=== PATIENT | female | born 1950 | race Asian ===

== ENCOUNTER 2016-04-14 23:13 | Inpatient (IN) | payer OTHER ==
[~2016-04-14] VITALS: Ht 149.9 cm; Wt 48.7 kg
[~2016-04-14 23:13] MED LIST: LOSA50TA37 PO; SIMV-260 PO
[2016-04-14] MEDS ORDERED: ONDANSETRON HCL 4 MG/2 ML VIAL IVP ONE (23:30)
[2016-04-14] MEDS ORDERED: SODIUM CHLORIDE 0.9% 1,000 ML IV ONE (23:30)
[2016-04-14 23:42] LABS: GLUCOSE,POINT OF CARE 148 MG/DL (70-110)
[2016-04-14 23:43] LABS: BASOPHILS % (AUTO) 0.5 % (0.0-2.0); EOSINOPHILS % (AUTO) 5.3 % (1.0-6.0); HEMATOCRIT 40.6 % (36-46); HEMOGLOBIN 13.4 g/dL (12.0-16.0); LYMPHOCYTES % (AUTO) 42.6 % (22.0-44.0); MEAN CORPUSCULAR HEMOGLOBIN 29.2 pg (26.0-34.0); MEAN CORPUSCULAR HGB CONC 32.9 G/dL (31.0-37.0); MEAN CORPUSCULAR VOLUME 89 fL (80-100); MONOCYTES # (AUTO) 0.7 K/uL (0.1-1.0); MONOCYTES % (AUTO) 7.8 % (2.0-9.0); NEUTROPHILS # (AUTO) 4.1 K/uL (1.8-7.7); NEUTROPHILS % (AUTO) 43.8 % (40.0-70.0); PLATELET COUNT (AUTO) 201 K/uL (150-450); RED BLOOD CELL COUNT(AUTO) 4.58 MIL/uL (4.00-5.20); RED CELL DISTRIBUTION WIDTH 12.2 % (11.5-14.5); WHITE BLOOD COUNT (AUTO) 9.4 K/uL (4.5-11.0)
[2016-04-15 00:15] LABS: APPEARANCE,URINE CLEAR (CLEAR); GLUCOSE, URINE (UA) NEGATIVE (NEGATIVE); KETONES,URINE NEGATIVE (NEGATIVE); LEUKOCYTE ESTERASE ,URINE NEGATIVE (NEGATIVE); OCCULT BLOOD,URINE NEGATIVE (NEGATIVE); PROTEIN,URINE NEGATIVE (NEGATIVE)
[2016-04-15 00:25] LABS: ALANINE AMINOTRANSFERASE 24 U/L (12-78); ALBUMIN 3.8 g/dL (3.4-5.0); ANION GAP 12 mmol/L (8-16); ASPARTATE AMINOTRANSFERASE 29 U/L (15-37); BILIRUBIN,TOTAL 0.6 mg/dL (0.1-1.0); CALCIUM, TOTAL 8.7 mg/dL (8.8-10.5); CARBON DIOXIDE 28 mmol/L (22-29); CHLORIDE 100 mmol/L (98-107); CREATININE 1.16 mg/dL (0.60-1.30); GLOMERULAR FILTR. RATE CALC 47 mL/min (>60); SODIUM SERUM 140 mmol/L (136-145); THYROID STIMULATING HORMONE 2.55 uIU/mL (0.36-3.74); TOTAL PROTEIN, SERUM 7.8 g/dL (6.4-8.2); UREA NITROGEN, BLOOD 14 mg/dL (7-18)
[2016-04-15 00:30] LABS: POTASSIUM 2.4 mmol/L (3.5-5.1)
[2016-04-15 00:42] LABS: RBC,URINE 0-2 /HPF (0-2); WBC,URINE None Seen /HPF (0-5)
[2016-04-15] MEDS ORDERED: POTASSIUM CHLORIDE 10% 40 MEQ/30 ML LIQUID UDCUP PO ONE (00:45)
[2016-04-15] MEDS ORDERED: POTASSIUM CHL 20 MEQ/D5-0.45NS 1,000 ML IV ONE (00:45)
[2016-04-15] MEDS ORDERED: IOVERSOL 350 MG/ML 100 ML VIAL ONE (00:54)
[2016-04-15] MEDS ORDERED: SODIUM CHLORIDE 0.9% 100 ML ONE (00:54)
[2016-04-15] MEDS ORDERED: PROMETHAZINE HCL 12.5 MG in SODIUM CHLORIDE 0.9% 50 ML IV ONE (01:00)
[2016-04-15] MEDS ORDERED: POTASSIUM CHL 10 MEQ/WATER 50 ML IV PRN (07:45)
[2016-04-15] MEDS ORDERED: SODIUM CHLORIDE 0.9% 1,000 ML IV ONE (07:45)
[2016-04-15] MEDS ORDERED: SODIUM CHLORIDE 0.9% 250 ML IV ONE (07:45)
[2016-04-15 08:43] LABS: CALCIUM, TOTAL 8.4 mg/dL (8.8-10.5); CREATININE 0.97 mg/dL (0.60-1.30); POTASSIUM 3.4 mmol/L (3.5-5.1)
[2016-04-15 09:08] VITALS: BP 122/59
[2016-04-15] MEDS ORDERED: ONDANSETRON HCL 4 MG/2 ML VIAL IVP PRN (10:30)
[2016-04-15] MEDS ORDERED: ACETAMINOPHEN 325 MG TABLET PO PRN (10:30)
[2016-04-15] MEDS ORDERED: HYDROCODONE/ACETAMINOPHEN 5-325 MG TABLET PO PRN (10:30)
[2016-04-15] MEDS ORDERED: MORPHINE SULFATE 2 MG/ML SYRINGE IVP PRN (10:30)
[2016-04-15] MEDS ORDERED: MAGNESIUM HYDROXIDE SUSPENSION 30 ML UDCUP PO PRN (10:30)
[2016-04-15] MEDS ORDERED: ZOLPIDEM TARTRATE 5 MG TABLET PO PRN (10:30)
[2016-04-15] MEDS ORDERED: BISACODYL 10 MG RECTAL RECTAL SUPPOSITORY PR PRN (10:30)
[2016-04-15] MEDS ORDERED: PHENAZOPYRIDINE HCL 100 MG TABLET PO PRN (10:45)
[2016-04-15] MEDS: BISACODYL 5 MG EC TABLET PO SCH ×2 (11:31→19:47)
[2016-04-15] MEDS: POTASSIUM CHLORIDE 20 MEQ ER TABLET PO PRN (11:32)
[2016-04-15] MEDS: NITROFURANTOIN/NITROFURAN MAC 100 MG CAPSULE [MACROBID] PO SCH (11:32)
[2016-04-15] MEDS: SODIUM CHLORIDE 0.9% 1,000 ML IV SCH ×2 (11:43→19:46)
[2016-04-15 12:38] VITALS: BP 112/66
[2016-04-15 16:03] VITALS: BP 110/63
[2016-04-15] MEDS: HEPARIN SODIUM,PORCINE 5,000 UNITS/ML VIAL SQ SCH ×2 (17:14→23:35)
[2016-04-15 19:45] VITALS: BP 109/63
[2016-04-15] MEDS: SIMVASTATIN 20 MG TABLET PO SCH (19:46)
[2016-04-15] MEDS: DOCUSATE SODIUM 100 MG CAPSULE PO SCH (19:46)
[2016-04-16 00:04] VITALS: BP 105/65
[2016-04-16 04:39] VITALS: BP 107/67
[2016-04-16 07:16] LABS: BASOPHILS % (AUTO) 0.3 % (0.0-2.0); EOSINOPHILS % (AUTO) 3.3 % (1.0-6.0); HEMATOCRIT 34.3 % (36-46); HEMOGLOBIN 11.3 g/dL (12.0-16.0); LYMPHOCYTES # (AUTO) 2.1 K/uL (1.0-4.8); LYMPHOCYTES % (AUTO) 23.1 % (22.0-44.0); MEAN CORPUSCULAR HEMOGLOBIN 29.2 pg (26.0-34.0); MEAN CORPUSCULAR HGB CONC 33.1 G/dL (31.0-37.0); MEAN CORPUSCULAR VOLUME 88 fL (80-100); MONOCYTES # (AUTO) 0.5 K/uL (0.1-1.0); NEUTROPHILS # (AUTO) 6.4 K/uL (1.8-7.7); NEUTROPHILS % (AUTO) 68.3 % (40.0-70.0); PLATELET COUNT (AUTO) 185 K/uL (150-450); RED BLOOD CELL COUNT(AUTO) 3.87 MIL/uL (4.00-5.20); RED CELL DISTRIBUTION WIDTH 12.8 % (11.5-14.5); WHITE BLOOD COUNT (AUTO) 9.3 K/uL (4.5-11.0)
[2016-04-16 07:41] LABS: CALCIUM, TOTAL 8.3 mg/dL (8.8-10.5); CREATININE 1.08 mg/dL (0.60-1.30); POTASSIUM 3.3 mmol/L (3.5-5.1)
[2016-04-16 08:12] VITALS: BP 120/65
[2016-04-16] MEDS: BISACODYL 5 MG EC TABLET PO SCH ×3 (08:30→21:00)
[2016-04-16] MEDS: ASPIRIN 81 MG EC TABLET PO SCH (08:30)
[2016-04-16] MEDS: HEPARIN SODIUM,PORCINE 5,000 UNITS/ML VIAL SQ SCH ×3 (08:30→23:24)
[2016-04-16] MEDS: DOCUSATE SODIUM 100 MG CAPSULE PO SCH ×2 (08:30→20:13)
[2016-04-16] MEDS: PANTOPRAZOLE SODIUM 40 MG DR TABLET PO SCH (08:31)
[2016-04-16] MEDS: NITROFURANTOIN/NITROFURAN MAC 100 MG CAPSULE [MACROBID] PO SCH (08:42)
[2016-04-16 12:00] VITALS: BP 151/84
[2016-04-16] MEDS ORDERED: GuaiFENesin/D-METHORPHAN/PHENYLEPH 5 ML LIQUID ORAL.SYG PO PRN (12:00)
[2016-04-16] MEDS: SODIUM CHLORIDE 0.9% 1,000 ML IV SCH (12:16)
[2016-04-16] MEDS: POTASSIUM CHLORIDE 20 MEQ ER TABLET PO PRN (12:16)
[2016-04-16 19:30] VITALS: BP 135/86
[2016-04-16] MEDS: SIMVASTATIN 20 MG TABLET PO SCH (21:00)
[2016-04-16 23:22] VITALS: BP 139/80
[2016-04-17 05:48] VITALS: BP 142/86
[2016-04-17 06:45] LABS: BASOPHILS # (AUTO) 0.05 K/uL (0.00-0.20); BASOPHILS % (AUTO) 0.7 % (0.0-2.0); EOSINOPHILS # (AUTO) 0.46 K/uL (0.00-0.70); EOSINOPHILS % (AUTO) 6.28 % (1.0-6.0); HEMATOCRIT 36.7 % (36-46); HEMOGLOBIN 12.6 g/dL (12.0-16.0); LYMPHOCYTES # (AUTO) 2.6 K/uL (1.0-4.8); LYMPHOCYTES % (AUTO) 34.9 % (22.0-44.0); MEAN CORPUSCULAR HEMOGLOBIN 29.9 pg (26.0-34.0); MEAN CORPUSCULAR HGB CONC 34.4 G/dL (31.0-37.0); MEAN CORPUSCULAR VOLUME 87 fL (80-100); MONOCYTES # (AUTO) 0.6 K/uL (0.1-1.0); MONOCYTES % (AUTO) 7.8 % (2.0-9.0); NEUTROPHILS # (AUTO) 3.7 K/uL (1.8-7.7); NEUTROPHILS % (AUTO) 50.4 % (40.0-70.0); PLATELET COUNT (AUTO) 206 K/uL (150-450); RED BLOOD CELL COUNT(AUTO) 4.21 MIL/uL (4.00-5.20); RED CELL DISTRIBUTION WIDTH 12.5 % (11.5-14.5); WHITE BLOOD COUNT (AUTO) 7.3 K/uL (4.5-11.0)
[2016-04-17] MEDS: DOCUSATE SODIUM 100 MG CAPSULE PO SCH (07:13)
[2016-04-17 07:17] VITALS: BP 123/76
[2016-04-17] MEDS: NITROFURANTOIN/NITROFURAN MAC 100 MG CAPSULE [MACROBID] PO SCH (07:49)
[2016-04-17] MEDS: PANTOPRAZOLE SODIUM 40 MG DR TABLET PO SCH (07:49)
[2016-04-17] MEDS: HEPARIN SODIUM,PORCINE 5,000 UNITS/ML VIAL SQ SCH (07:49)
[2016-04-17] MEDS: BISACODYL 5 MG EC TABLET PO SCH (07:49)
[2016-04-17] MEDS: ASPIRIN 81 MG EC TABLET PO SCH (07:49)
[2016-04-17 11:27] VITALS: BP 148/90
[2016-04-17] MEDS ORDERED: ZOLP5 PO (11:34)
[2016-04-17 15:29] VITALS: BP 132/85
== END 2016-04-17 18:50 | disposition home or self-care (01) | DRG 425 ==
LOC: EMS 23:16 → 6N 04-15 04:40
PROVIDERS: ADMIT Internal Medicine; ATTEND Internal Medicine
DX: E87.6 Hypokalemia (principal); N39.0 Urinary tract infection, site not specified; I10 Essential (primary) hypertension; K59.00 Constipation, unspecified; E78.5 Hyperlipidemia, unspecified; Z79.899 Other long term (current) drug therapy; Z98.890 Other specified postprocedural states; Z90.710 Acquired absence of both cervix and uterus; Z87.440 Personal history of urinary (tract) infections
CPT/HCPCS: 72100; 73503; 74010; 74177; 82962; 84132; 84443; 93005; 96360; 96361; 96365; 96375; 99285; G0480; J1644; J2405; J2550; J3480; J7030; J7050

== ENCOUNTER 2018-03-04 09:59 | Inpatient (IN) | payer OTHER ==
[~2018-03-04] VITALS: Ht 165.1 cm; Wt 54.5 kg
[~2018-03-04 09:59] MED LIST changes: -LOSA50TA37 PO; +LOSA50TA64 PO; +ZOLP5 PO
[2018-03-04] MEDS ORDERED: ASPI-556 PO (10:23)
[2018-03-04] MEDS ORDERED: FLUT16H NASAL (10:23)
[2018-03-04] MEDS ORDERED: HYDR25TA PO (10:23)
[2018-03-04] MEDS ORDERED: METO50 PO (10:23)
[2018-03-04] MEDS ORDERED: MONT10TA21 PO (10:23)
[2018-03-04] MEDS ORDERED: ACET-784 PO (10:23)
[2018-03-04] MEDS ORDERED: ATOR20TA86 PO (10:23)
[2018-03-04 10:49] LABS: GLUCOSE,POINT OF CARE 115 MG/DL (70-110)
[2018-03-04] MEDS ORDERED: SODIUM CHLORIDE 0.9% 1,000 ML IV ONE (11:15)
[2018-03-04] MEDS ORDERED: ONDANSETRON HCL 4 MG/2 ML VIAL IVP ONE (11:15)
[2018-03-04] MEDS ORDERED: MORPHINE SULFATE 4 MG/ML SYRINGE IVP ONE (11:15)
[2018-03-04 12:18] LABS: HEMATOCRIT 41.9 % (36-46); HEMOGLOBIN 14.7 g/dL (12.0-16.0); LYMPHOCYTES # (AUTO) 2.3 K/uL (1.0-4.8); LYMPHOCYTES % (AUTO) 42.8 % (22.0-44.0); MEAN CORPUSCULAR HEMOGLOBIN 30.3 pg (26.0-34.0); MEAN CORPUSCULAR HGB CONC 35.1 G/dL (31.0-37.0); MEAN CORPUSCULAR VOLUME 86 fL (80-100); MONOCYTES # (AUTO) 0.5 K/uL (0.1-1.0); MONOCYTES % (AUTO) 9.1 % (2.0-9.0); NEUTROPHILS # (AUTO) 2.1 K/uL (1.8-7.7); NEUTROPHILS % (AUTO) 39.1 % (40.0-70.0); PLATELET COUNT (AUTO) 203 K/uL (150-450); RED BLOOD CELL COUNT(AUTO) 4.86 MIL/uL (4.00-5.20); RED CELL DISTRIBUTION WIDTH 13.2 % (11.5-14.5)
[2018-03-04] MEDS ORDERED: ONDANSETRON HCL 4 MG/2 ML VIAL IVP PRN (12:45)
[2018-03-04] MEDS ORDERED: MAGNESIUM HYDROXIDE SUSPENSION 30 ML UDCUP PO PRN (12:45)
[2018-03-04 12:48] LABS: B-TYPE NATRIURETIC PEPTIDE 41 pg/mL (0-100)
[2018-03-04 12:49] LABS: ANION GAP 6 mmol/L (8-16); CALCIUM, TOTAL 9.3 mg/dL (8.8-10.5); CARBON DIOXIDE 30 mmol/L (22-29); CHLORIDE 87 mmol/L (98-107); CREATININE 0.85 mg/dL (0.60-1.30); GLOMERULAR FILTR. RATE CALC > 60 mL/min (>60); GLUCOSE,RANDOM 85 mg/dL (70-110); POTASSIUM 3.4 mmol/L (3.5-5.1); SODIUM SERUM 123 mmol/L (136-145); UREA NITROGEN, BLOOD 10 mg/dL (7-18)
[2018-03-04 12:50] LABS: ALANINE AMINOTRANSFERASE 30 U/L (12-78); ALBUMIN 3.9 g/dL (3.4-5.0); ALKALINE PHOSPHATASE 62 U/L (46-116); ASPARTATE AMINOTRANSFERASE 30 U/L (15-37); BILIRUBIN,TOTAL 1.2 mg/dL (0.1-1.0); CREATINE KINASE, TOTAL ONLY 188 U/L (26-192); TOTAL PROTEIN, SERUM 7.6 g/dL (6.4-8.2)
[2018-03-04] MEDS ORDERED: POTASSIUM CHL 10 MEQ/WATER 50 ML IV PRN (13:15)
[2018-03-04] MEDS ORDERED: POTASSIUM CHLORIDE 20 MEQ ER TABLET PO PRN (13:15)
[2018-03-04] MEDS: SODIUM CHLORIDE 0.9% 1,000 ML IV SCH (13:16)
[2018-03-04 14:55] VITALS: BP 136/58
[2018-03-04] MEDS: HEPARIN SODIUM,PORCINE 5,000 UNITS/ML VIAL SQ SCH (15:07)
[2018-03-04 16:08] LABS: APPEARANCE,URINE CLEAR (CLEAR); BILIRUBIN,URINE NEGATIVE (NEGATIVE); GLUCOSE, URINE (UA) NEGATIVE (NEGATIVE); KETONES,URINE NEGATIVE (NEGATIVE); LEUKOCYTE ESTERASE ,URINE NEGATIVE (NEGATIVE); NITRATE,URINE NEGATIVE (NEGATIVE); OCCULT BLOOD,URINE NEGATIVE (NEGATIVE); PROTEIN,URINE NEGATIVE (NEGATIVE); UROBILINOGEN,URINE 0.2 mg/dL (<=1.0)
[2018-03-04 20:09] VITALS: BP 139/68
[2018-03-04] MEDS: DOCUSATE SODIUM 100 MG CAPSULE PO SCH (20:31)
[2018-03-05 00:09] VITALS: BP 150/73
[2018-03-05 04:30] VITALS: BP 147/70
[2018-03-05] MEDS: SODIUM CHLORIDE 0.9% 1,000 ML IV SCH (05:34)
[2018-03-05 06:39] LABS: CALCIUM, TOTAL 8.9 mg/dL (8.8-10.5); CREATININE 0.95 mg/dL (0.60-1.30); POTASSIUM 4.6 mmol/L (3.5-5.1)
[2018-03-05 07:31] VITALS: BP 148/79
[2018-03-05] MEDS: HEPARIN SODIUM,PORCINE 5,000 UNITS/ML VIAL SQ SCH ×3 (07:58→16:37)
[2018-03-05] MEDS: LOSARTAN POTASSIUM 50 MG TABLET PO SCH (07:58)
[2018-03-05] MEDS: ASPIRIN 81 MG CHEWABLE TABLET PO SCH (07:58)
[2018-03-05] MEDS: ATORVASTATIN CALCIUM 20 MG TABLET PO SCH (07:58)
[2018-03-05] MEDS: DOCUSATE SODIUM 100 MG CAPSULE PO SCH ×2 (07:59→20:03)
[2018-03-05] MEDS: ACETAMINOPHEN 325 MG TABLET PO PRN ×2 (10:36→20:05)
[2018-03-05 11:47] VITALS: BP 120/62
[2018-03-05 16:02] VITALS: BP 123/71
[2018-03-05 19:33] VITALS: BP 148/68
[2018-03-06 00:28] VITALS: BP 139/65
[2018-03-06] MEDS: HEPARIN SODIUM,PORCINE 5,000 UNITS/ML VIAL SQ SCH ×2 (00:28→08:03)
[2018-03-06 05:20] VITALS: BP 154/82
[2018-03-06 06:55] LABS: ANION GAP 7 mmol/L (8-16); CALCIUM, TOTAL 9.1 mg/dL (8.8-10.5); CARBON DIOXIDE 28 mmol/L (22-29); CHLORIDE 104 mmol/L (98-107); CREATININE 0.86 mg/dL (0.60-1.30); GLOMERULAR FILTR. RATE CALC > 60 mL/min (>60); GLUCOSE,RANDOM 85 mg/dL (70-110); POTASSIUM 4.3 mmol/L (3.5-5.1); SODIUM SERUM 139 mmol/L (136-145); UREA NITROGEN, BLOOD 12 mg/dL (7-18)
[2018-03-06 07:41] VITALS: BP 166/76
[2018-03-06] MEDS: LOSARTAN POTASSIUM 50 MG TABLET PO SCH (08:03)
[2018-03-06] MEDS: ATORVASTATIN CALCIUM 20 MG TABLET PO SCH (08:03)
[2018-03-06] MEDS: ASPIRIN 81 MG CHEWABLE TABLET PO SCH (08:03)
[2018-03-06] MEDS: DOCUSATE SODIUM 100 MG CAPSULE PO SCH (08:03)
[2018-03-06 11:08] VITALS: BP 160/74
== END 2018-03-06 13:30 | disposition home or self-care (01) | DRG 426 ==
LOC: EMS 10:00 → 5N 14:01
PROVIDERS: ADMIT Internal Medicine; ATTEND Internal Medicine
DX: E87.1 Hypo-osmolality and hyponatremia (principal); E78.00 Pure hypercholesterolemia, unspecified; E86.1 Hypovolemia; I10 Essential (primary) hypertension; Z90.710 Acquired absence of both cervix and uterus; Z82.49 Family history of ischemic heart disease and other diseases of the circulatory system; E78.5 Hyperlipidemia, unspecified; R55 Syncope and collapse
CPT/HCPCS: 70450; 84132; 93005; 93306; 96372; G0378; J1644; J2270; J2405; J7030